=== PATIENT | male | born 1970 ===

== ENCOUNTER 2016-09-21 10:37 | Day surgery (SDC) | payer SELFPAY ==
[2016-09-15 07:11] VITALS: BMI 32.4
[2016-09-21 11:20] LABS: ADD MANUAL DIFF? NO
[2016-09-21 11:23] LABS: BASO # 0.01 K/mm3 (0.0-2.0); BASO % 0.2 % (0.0-3.0); EOS # 0.1 (0.0-0.7); EOS % 1.9 % (1.5-5.0); GRAN # 2.94 (1.4-6.5); GRAN % 61.7 % (50.0-68.0); HEMATOCRIT 42.4 % (42.0-52.0); LYMPH # 1.4 (1.2-3.4); LYMPH % 28.4 % (22.0-35.0); MEAN CELL VOLUME 82.2 fL (80.0-105.0); MEAN CORPUSCULAR HEMOGLOBIN 28.5 pg (25.0-35.0); MEAN CORPUSCULAR HGB CONC 34.7 g/dl (31.0-37.0); MEAN PLATELET VOLUME 9.8 fl (7.0-11.0); MONO # 0.4 (0.1-0.6); MONO % 7.8 % (1.0-6.0); PLATELET COUNT 254 10^3/uL (120.0-450.0); RED CELL DISTRIBUTION WIDTH 13.7 % (11.5-14.5); WHITE BLOOD COUNT 4.8 10^3/ul (4.5-11.0)
[2016-09-21 11:36] LABS: INR 1.04 (0.93-1.08); PARTIAL THROMBOPLASTIN TIME 27.3 Seconds (23.7-30.8)
[2016-09-21 11:37] LABS: ALB/GLOB RATIO 1.2 (1.1-1.8); ALKALINE PHOSPHATASE 65 U/L (38-133); ALT/SGPT 46 U/L (7-56); AST/SGOT 34 U/L (15-59); BILIRUBIN,TOTAL 0.5 mg/dL (0.2-1.3); BLOOD UREA NITROGEN 16 mg/dL (7-21); CALCIUM 9.3 mg/dL (8.4-10.5); CARBON DIOXIDE 27 mmol/L (21-33); CHLORIDE 104 mmol/L (98-107); GFR AFRICAN-AMERICAN > 60; GLUCOSE,RANDOM 95 mg/dL (70-110); POTASSIUM 4.2 mmol/L (3.6-5.0); SODIUM 139 mmol/L (132-148); TOTAL PROTEIN 7.8 g/dL (5.8-8.3)
[2016-09-21] MEDS ORDERED: Propofol 10 mg/ml Inj (20 ML) ONE ×3 (12:51→13:32)
[2016-09-21] MEDS ORDERED: Midazolam 2 MG/2 ML VIAL ONE (12:51)
[2016-09-21] MEDS ORDERED: Lidocaine 2% Inj (20ml) ONE (12:51)
[2016-09-21] MEDS ORDERED: Lactated Ringer's 1,000 ML IV SCH (13:48)
[2016-09-21] MEDS ORDERED: HYDROmorphone 1 mg/ml ISec ONE (14:19)
[2016-09-21 16:30] VITALS: PULSE 73; RESP 20; TEMP 98; O2SAT 98
[2016-09-21 16:32] VITALS: BP 140/80
== END 2016-09-21 16:30 | disposition home or self-care (01) ==
LOC: ENDO 10:37
PROVIDERS: ATTEND Internal Medicine
DX: D49.0 Neoplasm of unspecified behavior of digestive system (principal); K86.9 Disease of pancreas, unspecified
CPT/HCPCS: 36415; 43242; 80053; 85025; 85610; 85730; 88305; J1170; J2250; J2704; J3010; J7040; J7120